=== PATIENT | male | born 1965 | race Caucasian/White ===

== ENCOUNTER 2023-04-26 09:46 | Inpatient (IN) | payer MEDICAID ==
[2023-04-26] VITALS (15 sets, daily range): BP systolic 96–130; BP diastolic 49–73; PULSE 73–84; RESP 12–19; TEMP 98; O2SAT 91–97
[~2023-04-26] VITALS: Ht 175.3 cm; Wt 118.2 kg
[2023-04-26 10:36] LABS: BASOPHILS # (AUTO) 0.1 X10'3 (0-0.2); BASOPHILS % (AUTO) 0.6 % (0-1); EOSINOPHILS # (AUTO) 0.3 X10'3 (0-0.9); EOSINOPHILS % (AUTO) 2.4 % (0-6); HEMOGLOBIN 13.5 g/dl (14.0-17.9); LYMPHOCYTES % (AUTO) 7.7 % (21-51); MEAN CORPUSCULAR HGB CONC 33.8 g/dL (33.0-36.5); MEAN CORPUSCULAR VOLUME 85.9 FL (78-98); MEAN PLATELET VOLUME 7.6 FL (7.4-10.4); MONOCYTES % (AUTO) 7.7 % (2-12); NEUTROPHILS # (AUTO) 10.9 X10'3 (1.8-7.7); NEUTROPHILS % (AUTO) 81.6 % (42-75); PLATELET COUNT 303 X10'3 (140-440); RED BLOOD COUNT 4.65 X10'6 (4.70-6.10); RED CELL DISTRIBUTION WIDTH 15.9 % (11.5-14.5); WHITE BLOOD COUNT 13.4 X10'3 (4.5-11.0)
[2023-04-26] MEDS ORDERED: normal saline 1000ML IV soln IVB ONE (11:25)
[2023-04-26 11:32] LABS: ALANINE AMINOTRANSFERASE 22 U/L (12-78); ALBUMIN 3.2 G/DL (3.4-5.0); ALBUMIN/GLOBULIN RATIO 0.6 (1.1-1.5); ALKALINE PHOSPHATASE 94 IU/L (46-116); ANION GAP 8 (8-16); BILIRUBIN,TOTAL 0.5 MG/DL (0.1-1.0); BLOOD UREA NITROGEN 12 MG/DL (7-18); BUN/CREATININE RATIO 9.2 (10.0-20.0); CALCIUM 9.3 MG/DL (8.5-10.1); CHLORIDE 94 MMOL/L (99-107); GLUCOSE 202 MG/DL (70-104); PRO BRAIN NATRIURETIC PEPTIDE 243 PG/ML (0-125); SODIUM 132 MMOL/L (135-145); TOTAL PROTEIN 8.2 G/DL (6.4-8.2); eCRCL 61 ML/MIN; eGFR 57 ML/MIN
[2023-04-26 11:35] LABS: POTASSIUM 2.9 MMOL/L (3.5-5.1)
[2023-04-26] MEDS ORDERED: ondansetron/PF 4mg/2ml inj IV ONE (11:40)
[2023-04-26] MEDS ORDERED: magnesium Cl slow-release 64mg tablet PO PRN ×2 (11:40→13:30)
[2023-04-26] MEDS ORDERED: potassium Cl 20 mEq SR tablet PO PRN ×4 (11:40→13:30)
[2023-04-26] MEDS ORDERED: magnesium 4gm in 100ml NS 100 ML IV PRN ×2 (11:40→13:30)
[2023-04-26] MEDS ORDERED: morphine 10mg/ml inj. IV ONE ×2 (11:40→13:45)
[2023-04-26] MEDS ORDERED: ketorolac trometh. 30mg/ml inj. IV ONE (11:40)
[2023-04-26] MEDS ORDERED: potassium Cl 40MEQ/1/2NS 520ml 520 ML IV PRN ×2 (11:40→13:30)
[2023-04-26] MEDS ORDERED: magnesium 2GM in 50ml NS 50 ML IV PRN ×2 (11:40→13:30)
[2023-04-26] MEDS ORDERED: piperacillin/tazo 3.375gm/50ml 50 ML IV ONE (11:45)
[2023-04-26 11:51] LABS: ASPARTATE AMINO TRANSFERASE 15 U/L (10-37)
[2023-04-26 12:00] LABS: MAGNESIUM 2.2 MG/DL (1.5-2.4)
[2023-04-26 13:03] LABS: BILIRUBIN,URINE NEGATIVE (Neg); CLARITY,URINE CLEAR (Clear); COLOR,URINE YELLOW (Yellow); GLUCOSE, URINE NEGATIVE (Neg); KETONES,URINE NEGATIVE (Neg); LEUKOCYTE ESTERASE ,URINE NEGATIVE (Neg); NITRITES, URINE NEGATIVE (Neg); OCCULT BLOOD,URINE NEGATIVE (Neg); PROTEIN,URINE NEGATIVE (Neg); UROBILINOGEN,URINE 0.2 E.U/dL (0.2-1.0)
[2023-04-26 13:15] LABS: UA COLLECTION TYPE URINAL
[2023-04-26] MEDS ORDERED: mag hydrox/Alum hydrox/simeth 30ml oral suspension PO PRN (13:30)
[2023-04-26] MEDS ORDERED: acetaminophen 325mg tablet PO PRN ×2 (13:30)
[2023-04-26] MEDS ORDERED: HYDROcodone/acetaminophen 5mg/325mg tablet PO PRN (13:30)
[2023-04-26] MEDS ORDERED: magnesium hydroxide 30ml (MOM) UD suspension PO PRN (13:30)
[2023-04-26] MEDS ORDERED: ondansetron 4mg rapidly disintigrating tab PO PRN (13:30)
[2023-04-26] MEDS ORDERED: morphine 2 MG/ML inj. syringe IV PRN ×2 (13:30→16:50)
[2023-04-26] MEDS: normal saline 1000ml 1,000 ML IV SCH ×2 (13:30→23:05)
[2023-04-26] MEDS ORDERED: ondansetron/PF 4mg/2ml inj IV PRN ×2 (13:30→16:50)
[2023-04-26] MEDS ORDERED: potassium Cl 20 mEq SR tablet PO STA ×2 (13:42→15:22)
[2023-04-26] MEDS ORDERED: normal saline 1000ml 1,000 ML IV ONE (14:30)
[2023-04-26] MEDS ORDERED: methadone 10mg tablet PO ONE (15:25)
[2023-04-26] MEDS ORDERED: LORazepam 1 MG tablet PO ONE (15:25)
[2023-04-26] MEDS: pantoprazole 40mg Tablet.DR PO SCH (15:49)
[2023-04-26] MEDS ORDERED: labetalol 20mg/4ml (5mg/ml) syringe IV PRN (16:50)
[2023-04-26] MEDS ORDERED: fentaNYL/PF 50MCG/1 ML 2ML syringe IV PRN (16:50)
[2023-04-26] MEDS ORDERED: hydrALAZINE 20mg/ml inj. IV PRN (16:50)
[2023-04-26] MEDS ORDERED: ringers solution, lacted 1,000 ML IV SCH (16:50)
[2023-04-26] MEDS ORDERED: BUPIVAcaine 2.5mg/ml inj 50ml vial (contains preservative) ONE ×2 (16:53→18:51)
[2023-04-26] MEDS ORDERED: LIDOcaine 1% (10mg/ml)w/preservative inj. 20ml MDV ONE ×2 (16:53→18:51)
[2023-04-26] MEDS: piperacillin/tazo 4.5gm/100ml 100 ML IV SCH ×2 (16:54→23:00)
[2023-04-26] MEDS ORDERED: INDOCYANINE GREEN 25 MG/10 ML VIAL IV ONE ×2 (17:30→17:31)
[2023-04-26] MEDS ORDERED: propofol inj 20 ML IV ONE ×2 (17:33→17:53)
[2023-04-26] MEDS ORDERED: LIDOcaine 2% (20mg/ml) 5ml vial ONE ×2 (17:33→17:53)
[2023-04-26] MEDS ORDERED: fentaNYL/PF 50MCG/1 ML 2ML syringe ONE (17:33)
[2023-04-26] MEDS ORDERED: sevoflurane 250ml liquid IH ONE (17:40)
[2023-04-26] MEDS ORDERED: dexamethasone sod phosphate 10mg/ml inj ONE (17:40)
[2023-04-26] MEDS ORDERED: rocuronium 10mg/ml inj IV ONE ×2 (17:40→20:21)
[2023-04-26] MEDS ORDERED: ondansetron/PF 4mg/2ml inj ONE ×2 (17:53→20:21)
[2023-04-26] MEDS ORDERED: BUPIVAcaine/PF 2.5mg/ml (0.25%) 10ml vial ONE (18:57)
[2023-04-26] MEDS ORDERED: BUPIVACAINE liposomal/PF 13.3 MG/ML vial IM ONE (18:58)
[2023-04-26] MEDS ORDERED: K and/or MAG REPLACEMENT MC SCH (20:00)
[2023-04-26] MEDS: K and/or MAG REPLACEMENT MC SCH (20:00)
[2023-04-26] MEDS: morphine 4 MG/ML inj SYRINge IV PRN ×2 (20:36→20:41)
[2023-04-26] MEDS ORDERED: acetaminophen 1,000mg/100ml IV 100 ML IV SCH (20:58)
[2023-04-26] MEDS: fentaNYL/PF 50MCG/1 ML 2ML syringe IV PRN ×2 (20:58→21:04)
[2023-04-26] MEDS ORDERED: HYDROmorphone 1 mg/ml syringe IV ONE (21:20)
[2023-04-26] MEDS: morphine 2 MG/ML inj. syringe IV PRN (22:40)
[2023-04-26] MEDS: HYDROcodone/acetaminophen 10/325mg tab PO PRN (23:31)
[2023-04-27 00:20] VITALS: BP 114/60; PULSE 81
[2023-04-27 01:20] VITALS: BP 123/58; PULSE 71
[2023-04-27] MEDS: morphine 4 MG/ML inj SYRINge IV PRN ×2 (01:55→08:31)
[2023-04-27] MEDS: HYDROcodone/acetaminophen 10/325mg tab PO PRN ×4 (03:49→19:11)
[2023-04-27 06:50] LABS: BASOPHILS % (AUTO) 0.1 % (0-1); EOSINOPHILS % (AUTO) 0 % (0-6); LYMPHOCYTES # (AUTO) 0.7 X10'3 (1.1-4.8); LYMPHOCYTES % (AUTO) 3.9 % (21-51); MEAN CORPUSCULAR HEMOGLOBIN 28.9 PG (27.0-31.0); MEAN CORPUSCULAR HGB CONC 33.2 g/dL (33.0-36.5); MEAN CORPUSCULAR VOLUME 86.9 FL (78-98); MEAN PLATELET VOLUME 7.5 FL (7.4-10.4); MONOCYTES # (AUTO) 1.1 X10'3 (0-0.9); MONOCYTES % (AUTO) 6.2 % (2-12); NEUTROPHILS # (AUTO) 16.1 X10'3 (1.8-7.7); NEUTROPHILS % (AUTO) 89.8 % (42-75); PLATELET COUNT 273 X10'3 (140-440); RED BLOOD COUNT 4.14 X10'6 (4.70-6.10); RED CELL DISTRIBUTION WIDTH 15.9 % (11.5-14.5); WHITE BLOOD COUNT 17.9 X10'3 (4.5-11.0)
[2023-04-27 06:57] LABS: ALANINE AMINOTRANSFERASE 45 U/L (12-78); ALBUMIN 2.6 G/DL (3.4-5.0); ALBUMIN/GLOBULIN RATIO 0.6 (1.1-1.5); ALKALINE PHOSPHATASE 85 IU/L (46-116); ANION GAP 8 (8-16); ASPARTATE AMINO TRANSFERASE 44 U/L (10-37); BILIRUBIN,TOTAL 0.4 MG/DL (0.1-1.0); BLOOD UREA NITROGEN 10 MG/DL (7-18); BUN/CREATININE RATIO 8.7 (10.0-20.0); CALCIUM 8.6 MG/DL (8.5-10.1); CHLORIDE 102 MMOL/L (99-107); CREATININE 1.15 MG/DL (0.60-1.10); GLUCOSE 172 MG/DL (70-104); MAGNESIUM 2.1 MG/DL (1.5-2.4); POTASSIUM 3.8 MMOL/L (3.5-5.1); SODIUM 138 MMOL/L (135-145); TOTAL CARBON DIOXIDE 28.5 MMOL/L (24-32); eCRCL 69 ML/MIN; eGFR 65 ML/MIN
[2023-04-27] MEDS: pantoprazole 40mg Tablet.DR PO SCH (07:30)
[2023-04-27 08:00] VITALS: RESP 19; O2SAT 98
[2023-04-27] MEDS ORDERED: DOL10T PO ×2 (08:06)
[2023-04-27] MEDS: normal saline 1000ml 1,000 ML IV SCH ×2 (09:30→19:13)
[2023-04-27] MEDS: piperacillin/tazo 4.5gm/100ml 100 ML IV SCH ×3 (10:26→23:37)
[2023-04-27] MEDS: methadone 10mg tablet PO SCH ×2 (10:59→22:37)
[2023-04-27] MEDS ORDERED: LORazepam 0.5 MG tablet PO PRN (13:30)
[2023-04-27] MEDS: morphine 2 MG/ML inj. syringe IV PRN ×2 (15:50→20:59)
[2023-04-27 18:00] VITALS: BP 131/55; PULSE 73; RESP 16; TEMP 98.3; O2SAT 91
[2023-04-27] MEDS: metoprolol tartrate 25mg tablet PO SCH (19:12)
[2023-04-27] MEDS: K and/or MAG REPLACEMENT MC SCH (19:15)
[2023-04-27 20:00] VITALS: RESP 16; O2SAT 91
[2023-04-27 22:58] VITALS: BP 110/51; PULSE 57; RESP 16; TEMP 96.5; O2SAT 93
[2023-04-28] MEDS: HYDROcodone/acetaminophen 10/325mg tab PO PRN ×2 (00:21→07:54)
[2023-04-28] MEDS: morphine 2 MG/ML inj. syringe IV PRN (02:59)
[2023-04-28] MEDS: methadone 10mg tablet PO SCH ×2 (04:30→10:29)
[2023-04-28] MEDS: normal saline 1000ml 1,000 ML IV SCH (05:06)
[2023-04-28 06:00] VITALS: BP 158/83; PULSE 83; RESP 22; TEMP 98; O2SAT 93
[2023-04-28 06:00] LABS: BASOPHILS # (AUTO) 0.3 X10'3 (0-0.2); EOSINOPHILS # (AUTO) 0.3 X10'3 (0-0.9); EOSINOPHILS % (AUTO) 2.1 % (0-6); HEMATOCRIT 38.6 % (42.0-52.0); HEMOGLOBIN 12.7 g/dl (14.0-17.9); LYMPHOCYTES # (AUTO) 0.9 X10'3 (1.1-4.8); LYMPHOCYTES % (AUTO) 6.8 % (21-51); MEAN CORPUSCULAR HEMOGLOBIN 28.8 PG (27.0-31.0); MEAN CORPUSCULAR VOLUME 87.1 FL (78-98); MEAN PLATELET VOLUME 7.2 FL (7.4-10.4); MONOCYTES # (AUTO) 0.6 X10'3 (0-0.9); MONOCYTES % (AUTO) 4.5 % (2-12); NEUTROPHILS # (AUTO) 11.2 X10'3 (1.8-7.7); NEUTROPHILS % (AUTO) 84.6 % (42-75); PLATELET COUNT 311 X10'3 (140-440); RED BLOOD COUNT 4.43 X10'6 (4.70-6.10); RED CELL DISTRIBUTION WIDTH 16.4 % (11.5-14.5); WHITE BLOOD COUNT 13.2 X10'3 (4.5-11.0)
[2023-04-28 06:01] LABS: ALANINE AMINOTRANSFERASE 40 U/L (12-78); ALBUMIN 2.8 G/DL (3.4-5.0); ALBUMIN/GLOBULIN RATIO 0.6 (1.1-1.5); ALKALINE PHOSPHATASE 85 IU/L (46-116); ANION GAP 8 (8-16); ASPARTATE AMINO TRANSFERASE 24 U/L (10-37); BILIRUBIN,TOTAL 0.5 MG/DL (0.1-1.0); BLOOD UREA NITROGEN 8 MG/DL (7-18); BUN/CREATININE RATIO 6.8 (10.0-20.0); CALCIUM 8.5 MG/DL (8.5-10.1); CHLORIDE 103 MMOL/L (99-107); CREATININE 1.17 MG/DL (0.60-1.10); GLUCOSE 145 MG/DL (70-104); MAGNESIUM 1.9 MG/DL (1.5-2.4); POTASSIUM 3.4 MMOL/L (3.5-5.1); SODIUM 141 MMOL/L (135-145); TOTAL CARBON DIOXIDE 30.4 MMOL/L (24-32); TOTAL PROTEIN 7.6 G/DL (6.4-8.2); eCRCL 68 ML/MIN; eGFR 64 ML/MIN
[2023-04-28] MEDS: piperacillin/tazo 4.5gm/100ml 100 ML IV SCH (07:41)
[2023-04-28] MEDS: pantoprazole 40mg Tablet.DR PO SCH (07:41)
[2023-04-28] MEDS: K and/or MAG REPLACEMENT MC SCH (07:41)
[2023-04-28 07:45] VITALS: BP_SYST 160; PULSE 73
[2023-04-28] MEDS: metoprolol tartrate 25mg tablet PO SCH (07:45)
[2023-04-28] MEDS ORDERED: sertraline 50mg tablet PO SCH (08:00)
[2023-04-28] MEDS ORDERED: CIPR-259 PO (11:40)
[2023-04-28] MEDS ORDERED: POTA-205 PO (11:40)
== END 2023-04-28 12:55 | disposition home or self-care (01) | DRG 263 ==
LOC: ER 09:46 → ED HOLD 13:32 → ORTHO 4S 21:45
PROVIDERS: ADMIT Family Medicine; ATTEND Family Medicine
PROC: BF101ZZ Fluoroscopy of Bile Ducts using Low Osmolar Contrast (ICD-10-PCS; 2023-04-26)
PROC: 0FB44ZZ Excision of Gallbladder, Percutaneous Endoscopic Approach (ICD-10-PCS; 2023-04-26)
PROC: 0WQF4ZZ Repair Abdominal Wall, Percutaneous Endoscopic Approach (ICD-10-PCS; principal; 2023-04-26 17:40)
DX: K80.12 Calculus of gallbladder with acute and chronic cholecystitis without obstruction (principal); K76.0 Fatty (change of) liver, not elsewhere classified; R16.0 Hepatomegaly, not elsewhere classified; E66.01 Morbid (severe) obesity due to excess calories; G89.29 Other chronic pain; F11.90 Opioid use, unspecified, uncomplicated; K42.9 Umbilical hernia without obstruction or gangrene; Z85.46 Personal history of malignant neoplasm of prostate; Z87.442 Personal history of urinary calculi; Z79.899 Other long term (current) drug therapy; Z68.38 Body mass index [BMI] 38.0-38.9, adult
CPT/HCPCS: 36415; 76700; 80053; 81003; 83605; 83735; 83880; 84132; 84145; 84484; 85025; 85651; 87040; 93005; 99285; A4215; A4615; A4618; A6258; A6449; A7000; C9290; G0378; J0131; J1100; J1170; J1885; J2270; J2274; J2405; J2543; J2704; J3010; J3490; J7030; J7120